=== PATIENT | female | born 1965 | race Asian ===

== ENCOUNTER 2017-01-28 00:24 | Emergency (ER) | payer SELFPAY ==
[~2017-01-28] VITALS: Ht 165.1 cm; Wt 49.9 kg
[2017-01-28 00:30] VITALS: BP 124/90
--- NOTE | 2017-01-28 00:33 | Emergency Room Report ---
History of Present Illness General Chief Complaint: Lower Back Pain or Injury Source: Patient Present Illness HPI Patient is a 51 year-old female presented after increased low back pain after a fall. The patient poorly slipped and fell at a grocery store. Patient had no loss of consciousness. She reported having pain to her low back as well as to her tailbone. Patient denies other locations of pain. The patient was brought in by EMS. Allergies: Coded Allergies: No Known Allergies (Unverified , 01/28/17) Patient History Past Medical History: see triage record Last Menstrual Period: unable to obtain Now: No - unknown : 2 Para: 2 Reviewed Nursing Documentation: PMH: Agreed, PSxH: Agreed Nursing Documentation-PMH Past Medical History: No Stated History Review of Systems All Other Systems: negative except mentioned in HPI Physical Exam Vital Signs Date Time Temp Pulse Resp B/P Pulse Ox O2 Delivery O2 Flow Rate FiO2 01/28/17 00:17 97.7 71 16 132/86 100 Room Air General Appearance: normal inspection, well appearing, no apparent distress, alert, GCS 15 Head: normocephalic, atraumatic ENT: hearing grossly normal, normal voice Neck: full range of motion, supple Respiratory: normal inspection, lungs clear, no respiratory distress, speaking full sentences Gastrointestinal: normal inspection, soft Musculoskeletal: normal inspection, digits/nails normal, no calf tenderness, decreased range of mation Neurologic: normal inspection, alert, oriented x3, responsive, 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 Differential diagnosis included but was not limited to herniated disc, cauda equina syndrome, abdominal aortic aneurysm , perforated ulcer, spinal epidural abscess, spinal stenosis, lumbar fracture, metastatic lesion, pyelonephritis. Because of complexity of patient's case imaging studies were ordered.The x-ray imaging of the lumbar spine previous interpreted by me showed a degenerative changes without evident fracture. Osteopenia was noted. Patient given ibuprofen for pain.The patient is advised to follow up with primary care doctor in 1-2 days. Patient is advised to return if any worsening condition or if any changes in status that are concerning.The patient is advised to return if she began having any bowel or bladder dysfunction, fever or other concerns Last Vital Signs Date Time Temp Pulse Resp B/P Pulse Ox O2 Delivery O2 Flow Rate FiO2 01/28/17 00:17 97.7 71 16 132/86 100 Room Air Status: improved Disposition: HOME, SELF-CARE Condition: Stable Ish Willis Jan 28, 2017 00:32
[2017-01-28] MEDS ORDERED: CYCLOBENZAPRINE10 MG ORAL (01:16)
[2017-01-28] MEDS ORDERED: IBUPROFEN400 MG ORAL (01:16)
[2017-01-28 01:33] VITALS: BP 113/79
[2017-01-28 01:46] VITALS: BP 113/79
--- NOTE | 2017-01-28 10:40 | Diagnostic Imaging Report ---
Indication: Back pain Comparison: None Findings: 2 views of the lumbar spine were obtained. Study is very limited as obtained on a technical standpoint. The lateral view should be repeated. Bones are osteopenic. No obvious fracture demonstrated as obtained. Impression: The study is of limited diagnostic value and should be repeated
--- NOTE | 2017-01-28 10:41 | Diagnostic Imaging Report ---
Indication: pain Findings: Single AP view of the pelvis was performed. No obvious fracture demonstrated. The bones are osteopenic. No obvious malalignment seen. Sacrum is obscured by bowel gas and stool. Impression: No obvious fracture
== END 2017-01-28 01:46 | disposition home or self-care (01) ==
LOC: EDBD 00:24 → EMR 00:56
DX: S30.0XXA Contusion of lower back and pelvis, initial encounter (principal); W19.XXXA Unspecified fall, initial encounter; Y92.512 Supermarket, store or market as the place of occurrence of the external cause
CPT/HCPCS: 72110; 72170; 99284